=== PATIENT | male | born 1945 ===

== ENCOUNTER 2019-02-06 14:07 | Inpatient (IN) | payer MEDICARE ==
[~2019-02-06] VITALS: Ht 182.9 cm; Wt 78.2 kg
--- NOTE | 2019-02-06 15:45 | NUR ---
PATIENT ARRIVED TO UNIT VIA AMBULANCE. PT. ALERT, CALM, PLEASANT, CALM, COOPERATIVE WITH STAFF, ACCOMPANIED BY FAMILY. NO AGGRESSION NOTED. VITAL SIGNS MEASURED AND PATIENT ASSISTED TO DAYROOM TO JOIN PEERS. DENIES PAIN, NO S/S DISTRESS.
[2019-02-06] MEDS ORDERED: KLONOPIN0.5 MG PO (18:27)
[2019-02-06] MEDS ORDERED: SINEMET 25-1001 EAC1 PO (18:28)
[2019-02-06] MEDS ORDERED: ACETAMINOPHEN325 MG PO (18:28)
[2019-02-06] MEDS ORDERED: SYNTHROID25 MCG PO (18:29)
[2019-02-06] MEDS ORDERED: LIPITOR40 MG PO (18:30)
[2019-02-06] MEDS ORDERED: PAXIL40 MG PO (18:31)
[2019-02-06] MEDS ORDERED: VITAMIN B-12100 MCG PO (18:31)
[2019-02-06] MEDS ORDERED: NAMENDA5 MG PO (18:31)
--- NOTE | 2019-02-06 18:36 | NUR ---
RECEIVED IN DAYROOM. SITTING IN A WHEELCHAIR WATCHING TV. CALM AND COOPERATIVE WITH CARE AND ASSESSMENT. NO STATEMENTS OF SELF HARM MADE. ENCOURAGE TO EXPRESS NEEDS. CONTINUES TO SIT QUIETLY WATCHING TV. CONTINUE PLAN OF CARE
[2019-02-06 20:01] VITALS: BP 100/67
[2019-02-06 21:31] VITALS: BP 102/67; BMI 23.1
[2019-02-07 05:11] LABS: BASOPHILS 0.3 % (0-2); EOSINOPHILS 1.7 % (0-7); HEMOGLOBIN 14.6 g/dL (13.5-17.5); IMMATURE GRANULOCYTES 0.2 % (0-5); LYMPHOCYTES 21.3 % (15-50); MCH 31.7 pg (26.0-34.0); MCV 93.5 fL (80.0-100.0); MEAN PLATELET VOLUME 9.8 fL (7.4-10.4); MONOCYTES 7.6 % (2-11); NEUTROPHILS 68.9 % (40-80); PLATELET COUNT 199 10x3/uL (130-400); RDW 13.6 % (11.5-14.5); WBC 5.9 10x3/uL (4.8-10.8)
[2019-02-07 06:21] LABS: ALBUMIN 3.4 g/dL (3.4-5.0); ANION GAP 8.3 mmol/L (8-16); BILIRUBIN - TOTAL 0.61 mg/dL (0.2-1.3); CALCIUM 8.8 mg/dL (8.5-10.1); CARBON DIOXIDE 31.8 mmol/L (21.0-32.0); CHOL - HDL RATIO 3.3 ratio (2.3-4.9); CREATININE - SERUM 1.1 mg/dL (0.6-1.3); POTASSIUM - SERUM 4.1 mmol/L (3.5-5.1); THYROID STIMULATING HORMONE 4.62 uIU/mL (0.36-3.74)
[2019-02-07 08:50] VITALS: BP 110/59
[2019-02-07 08:51] VITALS: Ht 182.9 cm; Wt 78.2 kg
--- NOTE | 2019-02-07 12:52 | NUR ---
B) The patient is awake and alert, he has not mentioned anything about being suicidal. He is quiet and calm. He self propels in a w/c. I) Provide prescribed meds. R) The patient is compliant with meds. P) Continue POC.
--- NOTE | 2019-02-07 14:02 | NUR ---
Urine obtained for UDS and micro.
[2019-02-07 14:28] LABS: UDS - AMPHET NEGATIVE QUAL (NEGATIVE); UDS - BARB NEGATIVE QUAL (NEGATIVE); UDS - BENZO NEGATIVE QUAL (NEGATIVE); UDS - COCAINE NEGATIVE QUAL (NEGATIVE); UDS - OPIATE NEGATIVE QUAL (NEGATIVE); UDS - PCP NEGATIVE QUAL (NEGATIVE); UDS - THC NEGATIVE QUAL (NEGATIVE)
[2019-02-07 20:20] VITALS: BP 112/61
--- NOTE | 2019-02-07 21:34 | NUR ---
RECEIVED SITTING IN DAYROOM. SOCIALLY WITHDRAWN HOWEVER IS APPROPRIATE WHEN APPROACHED BY STAFF. RELATES HE IS HERE BECAUSE HE DID SOMETHING STUPID AND TOOK ALL OF HIS MEDICATION. RELATES DEPRESSION MIGHT BE GETTING A LITTLE BETTER. ADMINISTER MEDS AND MONITOR COMPLIANCE. OBTAIN VERBAL NO HARM CONTRACT. MED COMPLIANT. CONTRACTS VERBALLY FOR NO SELF HARM. CONTINUE POC AND PROVIDE SAFE ENVIRONMENT.
--- NOTE | 2019-02-08 07:26 | NUR ---
B) The patient is depressed. He stays to himself, answers questions when asked, but does not interact. He can ambulate independently. He denies S.I. I) Provide prescribed meds. R) The patient is compliant with meds. P) Continue POC.
[2019-02-08 09:39] VITALS: BP 114/69
--- NOTE | 2019-02-08 14:51 | PSY ---
PATIENT NAME:WILLIAMS IGNACIO MEDICAL RECORD: [id number] : 45 LOCATION:[facility] ADMISSION DATE: 02/06/19 ACCOUNT: [id number] PSYCHIATRIC EVALUATION DATE OF EVALUATION: 02/07/19 IDENTIFYING DATA: The patient is 73 years old and he is admitted to the hospital on a voluntary basis. CHIEF COMPLAINT: Depression. HISTORY OF PRESENT ILLNESS: The patient was visiting here from [place]. He apparently took an overdose and was hospitalized at . He endorses numerous neurovegetative depressive symptoms, but says he does not want to hurt himself anymore. He is evasive about the circumstances that led to him taking an overdose. He is denying any psychotic symptoms. He admits that he has some memory trouble. He apparently uses cocaine intermittently, but there is none in his urine currently. He has had some significant problems and at home he apparently got lost and was gone for more than 24 hours before the police brought him home. PAST MEDICAL HISTORY: Most significant for Parkinson's disease, which has been present for a couple of years. He also has hypothyroidism. PAST PSYCHIATRIC HISTORY: Significant for some outpatient treatment that was just started by a psychiatrist in [place]. I do not have details about that, but I do not think much there. He has only seen the psychiatrist once, perhaps twice at the most. SOCIAL HISTORY: The patient is single, but has a significant other who has been his life partner or the equivalent, I suppose, of his for the past 30 years. He has 1 daughter who lives here with her and he is a retired machine cutter. ALLERGIES: No known drug allergies. CURRENT MEDICATIONS: Klonopin, Sinemet, Synthroid, Lipitor, Paxil, Namenda and vitamin B12. MENTAL STATUS EXAMINATION: The patient is awake, alert and oriented to person and place and somewhat to time and situation. His mood is depressed. His affect is constricted. Thought processes are circumstantial. Memory, concentration, and abstraction abilities are moderately impaired and he denies that he would seek to harm himself or others as well as overt psychotic symptoms. ASSETS: Supportive family members. LIABILITIES: Limited insight. DIAGNOSTIC IMPRESSION: AXIS I: Major depressive episode, moderate severity without psychotic features. Parkinson's related dementia. Cocaine abuse. AXIS II: Deferred. AXIS III: Hypothyroidism, Parkinson's disease. AXIS IV: Moderate stressors. AXIS V: Global assessment of functioning is 35. PLAN: At this time, the patient is admitted to the hospital for a comprehensive medical, psychological, and social evaluation. He will be treated with both mood stabilizing and memory enhancing medications. His long-term prognosis is guarded. TRANSINT:[id number] Voice Confirmation ID: [id number] DOCUMENT ID: [id number] ALESHIA CUMMINGS MD at 1451 CC: [id number] DICTATION DATE: 02/07/19 1526 STITCHER FEEDER: 02/07/19 1544 ADM IN [facility] [address] [id number]
[2019-02-08 20:00] VITALS: BP 111/64
--- NOTE | 2019-02-08 21:54 | NUR ---
B.) PT IS ALERT AND ORIENTED TO SELF AND SITUATION. HE IS RECIEVED IN THE DAYROOM IN HIS WHEELCHAIR. HE IS PLEASANT WITH STAFF. HE IS ABLE TO MAKE HIS NEEDS KNOWN. HE DOES TEND TO KEEP TO HIMSELF. I.) PROVIDE PM MEDICATIONS. R.) COMPLIANT WITH ALL MEDICATIONS. P.) CONTINUE PLAN OF CARE
--- NOTE | 2019-02-09 08:02 | PN ---
PATIENT:WILLIAMS IGNACIO MEDICAL RECORD: [id number] LOCATION:[facility] ADMISSION DATE: 02/06/19 PROGRESS NOTE DATE OF SERVICE: 02/08/2019 SUBJECTIVE: The patient's case was discussed with staff. He has no new complaint. OBJECTIVE: The patient is in good behavioral control. He denies that he would seek to harm himself. He currently is taking a higher dose of Synthroid for its antidepressant effect. I am going to titrate the Paxil down to 20 mg. ASSESSMENT: 1. Major depression. 2. Parkinson-related dementia. PLAN: As mentioned above. The Paxil will be reduced. I have started him on Namenda. He has no thoughts of harming himself. I think he can reasonably be returned to the work soon. TRANSINT:[id number] Voice Confirmation ID: [id number] DOCUMENT ID: [id number] ALESHIA CUMMINGS MD at 0802 CC: [id number] DICTATION DATE: 02/08/19 1507 PARISH WORKER: 02/08/192 ADM IN [facility] [address] [place] [address]
[2019-02-09 09:16] VITALS: BP 117/71
--- NOTE | 2019-02-09 12:29 | NUR ---
The patient is awake and he is smiling a little today. His affect is flat and he is refusing to eat. He just sits and watches football. He says very little to staff or peers. He can ambulate, but he is sitting in a w/c self propelling. Provide prescribed meds. The patient is compliant with meds. He denies SI. Continue POC.
--- NOTE | 2019-02-09 13:17 | NUR ---
Patient is getting very upset because he is not getting a shower now. He is being demanding. Stating "I was told I was getting a shower today, my family will be here and I will not be cleaned up." He is not listening to reason. He is trying to punch the code to go to his room. He will not sit down in his chair. Staff continue to explain to him that he will get his shower. He says "No, now." Joanie Sage T went to get towels and Security called as he is not redirecting. The patient received ativan 0.5 mg IM in his left deltoid. He is anxious and irritable and it is difficult to guage him as he is normally quiet and passive.
--- NOTE | 2019-02-09 14:00 | NUR ---
Spoke to the patient about having a shower, asked him if he felt better. He said "No, I do not, I feel humiliated. I am not being treated in a dignified manner." Had Lucy Delgado LPN speak to him as she has a good rapport with him and she asked him what he needed and he said "A beer and to hell out of here." The patient is not eating and he is irritable.
--- NOTE | 2019-02-09 15:01 | NUR ---
The patient is sitting in the dining room watching football away from other patients and staff.
--- NOTE | 2019-02-09 15:39 | NUR ---
Family is here to visit and did explain that he is having some agitation and being demanding and if he get irritable at visitation we will have to cut the visit short. Family verbalized understanding.
--- NOTE | 2019-02-09 19:41 | NUR ---
RECEIVED IN DAYROOM. SITTING IN WHEELCHAIR AND WATCHING TV. CALM AND COOPERATIVE WITH CARE AND ASSESSMENT. NO AGGRESSIVE BEHAVIORS. NO EXIT SEEKING. REDIRECT AND REORIENT NEEDED. CONTINUES TO SIT AND WATCH TV WHILE WAITING ON PM MEDICATIONS AT THIS TIME. CONTINUE PLAN OF CARE.
[2019-02-09 20:00] VITALS: BP 103/62
[2019-02-10 08:00] VITALS: BP 113/73
--- NOTE | 2019-02-10 16:41 | NUR ---
RECEIVED PATIENT IN DINING ROOM FOR B'FAST, ALERT, CALM, COOPERATIVE. MEDS ADMIN PER ORDERS WITH COMPLETE MED COMPLIANCE NOTED. FAMILY VISITED THIS SHIFT AND ASKED ABOUT A DISCHARGE DATE AND FOLLOWUP CARE. STATED THEY WOULD SPEAK TO C JAVA DEVELOPER ON MONDAY. CONT PLAN OF CARE.
[2019-02-10 20:10] VITALS: BP 120/75
--- NOTE | 2019-02-10 22:09 | NUR ---
RECEIVED IN DAYROOM. SITTING IN A WHEELCHAIR WATCHING TV. CALM AND COOPERATIVE WITH CARE AND ASSESSMENT. DENIES THOUGHTS OF SELF HARM. ENCOURAGE TO EXPRESS NEEDS. RESTING IN BED WITH EYES CLOSED AT THIS TIME. CONTINUE PLAN OF CARE
[2019-02-11 08:28] VITALS: BP 114/73
--- NOTE | 2019-02-11 11:33 | NUR ---
RECEIVED PATIENT IN DINING ROOM FOR B'FAST, ALERT, CALM, COOPERATIVE. DENIES SUICIDAL IDEATIONS AT THIS TIME. CONT POC DIRECTED.
--- NOTE | 2019-02-11 14:22 | NUR ---
Nutrition Follow-up: Diet: Regular PO intake: ~83% average x last 9 meals Significant meds: ampicillin, levaquin. Labs and skin assessment reviewed. Wt: 152# (02/10/19); Admit wt: 153# (02/06/19). Last BM 02/10/19. Continue current nutrition regimen. RD Following.
--- NOTE | 2019-02-11 15:49 | PN ---
PATIENT:WILLIAMS IGNACIO MEDICAL RECORD: [id number] LOCATION:[facility] ADMISSION DATE: 02/06/19 PROGRESS NOTE DATE OF SERVICE: 02/10/2019 SUBJECTIVE: The patient's case was discussed with staff. He has no new complaint. OBJECTIVE: The patient is in good behavioral control. He denies that he would seek to harm himself. He had a low thyroid level. He is taking a higher dose of Synthroid. ASSESSMENT: No change in diagnoses. PLAN: Brief supportive and educational interventions were made. Long-term prognosis is guarded. TRANSINT:[id number] Voice Confirmation ID: [id number] DOCUMENT ID: [id number] ALESHIA CUMMINGS MD at 1549 CC: [id number] DICTATION DATE: 02/10/19 1155 DIELECTRIC PRESS OPERATOR: 02/10/19 1202 ADM IN [facility] [address] [id number]
--- NOTE | 2019-02-11 15:49 | PN ---
PATIENT:WILLIAMS IGNACIO MEDICAL RECORD: [id number] LOCATION:[facility] ADMISSION DATE: 02/06/19 PROGRESS NOTE DATE OF SERVICE: 02/09/2019 SUBJECTIVE: The patient's case was discussed with staff. He has no new complaint. OBJECTIVE: The patient denies intent to harm himself or others. He is tolerating his medicines well. He is oriented this morning. He ate well yesterday and slept well last night. He denies that he would seek to harm himself. He is clearly impaired cognitively. ASSESSMENT: 1. Major depression. 2. Parkinson's related dementia. PLAN: Brief supportive and educational interventions were made. The patient's long-term prognosis is guarded. I anticipate that he can reasonably fly home soon if that is what his family wants or he can certainly continue to stay here and complete this treatment. I am not optimistic about his long-term prognosis as far improvement in his cognition. In fact, I am convinced he has a serious and progressive dementia that may temporarily improve with the mood disorder being treated. I have not seriously addressed the cocaine issue with him, but given his dementia and the need for supervision unless the home is just completely inappropriate with behaviors there, it should not be difficult to keep him away from someone who would sell him cocaine. I think that will be a nontreatment issue and he really does not have the cognitive abilities to participate in a 12-step program in any serious way. TRANSINT:[id number] Voice Confirmation ID: [id number] DOCUMENT ID: [id number] ALESHIA CUMMINGS MD at 1549 CC: [id number] DICTATION DATE: 02/09/19828 COMPUTER REPAIR INSTRUCTOR: 02/09/19 0841 ADM IN [facility] [address] [place] [address]
[2019-02-11 20:05] VITALS: BP 113/68
--- NOTE | 2019-02-11 20:38 | NUR ---
RECEIVED IN DAYROOM. SITTING IN A CHAIR WITCHING TV. CALM AND COOPERATIVE WITH CARE AND ASSESSMENT. DENIES THOUGHTS OF SELF HARM. ENCOURAGE TO EXPRESS NEEDS. CONTINUS TO SIT CALM IN DAYROOM. CONTINUE PLAN OF CARE
[2019-02-12 08:18] VITALS: BP 106/68
[2019-02-12] MEDS ORDERED: AMPICILLIN TRI500 MG PO (08:58)
[2019-02-12] MEDS ORDERED: LEVOFLOXACIN500 MG PO (08:58)
[2019-02-12] MEDS ORDERED: Sinemet 25/100 MG PO (08:59)
[2019-02-12] MEDS ORDERED: PAXIL20 MG PO (09:00)
[2019-02-12] MEDS ORDERED: NAMENDA5 MG PO (09:00)
[2019-02-12] MEDS ORDERED: SYNTHROID50 MCG PO (09:01)
[2019-02-12] MEDS ORDERED: FLORAJEN3 CAPS460 MG PO (09:01)
[2019-02-12] MEDS ORDERED: VITAMIN D5000 UNIT PO (09:02)
--- NOTE | 2019-02-12 12:45 | NUR ---
DISCHARGE PAPERWORK COMPLETED. INSTRUCTIONS AND MEDICATIONS REVIEWED WITH FAMILY PER VALDEMAR DANIELS RN. LEFT HOSPITAL VIA PRIVATE CAR WITH DAUGHTER.
--- NOTE | 2019-02-12 15:28 | PN ---
PATIENT:WILLIAMS IGNACIO MEDICAL RECORD: [id number] LOCATION:[facility] ADMISSION DATE: 02/06/19 PROGRESS NOTE DATE OF SERVICE: 02/11/2019 SUBJECTIVE: The patient's case was discussed with staff. He has no new complaint. OBJECTIVE: The patient is in good behavioral control with limited insight about his condition. He does tolerate his medicines well. ASSESSMENT: 1. Major depression. 2. Parkinson's-related dementia. PLAN: The patient will be maintained on current medicines. I have increased the dose of the Namenda. I have discussed various options for his discharge and treatment with his daughter. TRANSINT:[id number] Voice Confirmation ID: [id number] DOCUMENT ID: [id number] ALESHIA CUMMINGS MD at 1528 CC: [id number] DICTATION DATE: 02/11/19 1625 APPLICATION SUPPORT MANAGER: 02/11/19 2148 ADM IN [id number] [place] [address]
--- NOTE | 2019-02-13 14:20 | PN ---
PATIENT:WILLIAMS IGNACIO MEDICAL RECORD: [id number] LOCATION:[facility] ADMISSION DATE: 02/06/19 PROGRESS NOTE DATE OF SERVICE: 02/12/2019 SUBJECTIVE: The patient's case was discussed with staff. He has no new complaint. OBJECTIVE: The patient denies intent to harm himself or others. He is impaired cognitively, but not seriously agitated. ASSESSMENT: Major depression. PLAN: Current medicines have been reviewed and will be maintained. He is going to be discharged home with his family. They are going to make arrangements for him to be transported back to [place] and he already has a psychiatrist in [place] he will follow up. TRANSINT:[id number] Voice Confirmation ID: [id number] DOCUMENT ID: [id number] ALESHIA CUMMINGS MD at 1420 CC: [id number] DICTATION DATE: 02/12/19 1546 HUNTING SALES LEADER: 02/12/197 DIS IN 02/12/19 [facility] [address] [place] [address]
--- NOTE | 2019-02-16 12:27 | DS ---
PATIENT:WILLIAMS IGNACIO :45 MEDICAL RECORD: [id number] DISCHARGE SUMMARY ADMISSION DATE: 02/06/19 DISCHARGE DATE: 02/12/19 IDENTIFYING DATA: The patient is 73 years old and he was admitted to the hospital on a voluntary basis because of depression. The patient is visiting here from [place]. He apparently took an overdose and was hospitalized at [facility]. He endorses numerous neurovegetative depressive symptoms, but says he does not want to hurt himself anymore. He is a little evasive about the circumstances that led him to taking the overdose, but his daughter later told me he had had an episode of incontinence immediately prior and that obviously upset him quite a bit. He denied psychotic symptoms. He does admit to some memory trouble and apparently he is in intermittent user of cocaine. There was none in his urine. HOSPITAL COURSE: The patient was admitted to the hospital and fully evaluated from both a medical, psychological, and social standpoint. He was treated with antidepressant medication and diagnosed with a Parkinson's related dementia. He showed improvement through the course of the hospitalization and was subsequently discharged to the care of his family. He is shortly going to be returned to [place] where he already has an established relationship with a psychiatrist. DISCHARGE DIAGNOSES: AXIS I: 1. Major depressive episode, moderate severity without psychotic features. 2. Parkinson's related dementia. 3. Cocaine use disorder. AXIS II: Deferred. AXIS III: Hypothyroidism, Parkinson's disease. AXIS IV: Moderate stressors. AXIS V: Global assessment of functioning is 40. PLAN: At the time of discharge, the patient was not representing an acute risk to himself or others. He has clear evidence of a mood disorder as well as dementia. He is in need of 02-ibsa-i-day supervision and obviously his condition would benefit abstinence from cocaine, which he says is not any kind of an issue and he only uses it recreationally. He will have follow up with the psychiatrist in his home state. I think it is reasonable for him to travel; however, he should travel with family naturally. By that, I mean, he should not be put on an airplane by himself. I think his long-term prognosis is unfortunately guarded and the dementia is progressive. TRANSINT:[id number] Voice Confirmation ID: [id number] DOCUMENT ID: [id number] ALESHIA CUMMINGS MD at 1227 CC: [id number] DICTATION DATE: 02/15/19 142 CLINICAL DATA ABSTRACTOR: 02/16/19 0729 DIS IN 02/12/19 [facility] [address] [id number]
== END 2019-02-12 12:45 | disposition home or self-care (01) | DRG 881 ==
LOC: D.PSYCH 14:07
PROVIDERS: ADMIT Psychiatry & Neurology Psychiatry; ATTEND Psychiatry & Neurology Psychiatry
DX: F32.9 Major depressive disorder, single episode, unspecified (principal); F02.81 Dementia in other diseases classified elsewhere, unspecified severity, with behavioral disturbance; N39.0 Urinary tract infection, site not specified; G20 Parkinson's disease; F14.10 Cocaine abuse, uncomplicated; E03.9 Hypothyroidism, unspecified; R26.9 Unspecified abnormalities of gait and mobility; E78.5 Hyperlipidemia, unspecified; E53.8 Deficiency of other specified B group vitamins; E55.9 Vitamin D deficiency, unspecified